=== PATIENT | male | born 1990 ===

== ENCOUNTER 2021-04-23 19:25 | Emergency (ER) | payer MEDICAID ==
[~2021-04-23] VITALS: Ht 175.3 cm; Wt 97.2 kg
[2021-04-23] MEDS ORDERED: LORAZEPAM 1MG TABLET PO ONE (23:30)
[2021-04-24 00:02] LABS: BASOPHILS % 0.6 % (0.0-2.0); EOSINOPHILS % 1.8 % (0.0-5.0); HEMATOCRIT. 43.6 % (42.0-52.0); HEMOGLOBIN. 14.7 g/dL (14.0-18.0); LYMPHOCYTES % 17.9 % (20.0-50.0); MEAN CORPUSCULAR HEMOGLOBIN 29.9 pg (28.0-32.0); MEAN CORPUSCULAR VOLUME 88.4 fL (80.0-94.0); MEAN PLATELET VOLUME 8.1 fl (7.4-10.4); MONOCYTES % 11.3 % (2.0-8.0); NEUTROPHILS % 68.4 % (40.0-76.0); PLATELET 348 x1000/uL (130-400); RED BLOOD CELL COUNT 4.93 mill/uL (4.7-6.1); RED CELL DISTRIBUTION WIDTH 13.9 % (11.6-14.6)
[2021-04-24 00:10] LABS: CHLORIDE 99 mEq/L (98-107)
[2021-04-24 00:16] LABS: ETHANOL BLOOD < 10 mg/dL
[2021-04-24 00:21] LABS: CREATINE KINASE 853 IU/L (39-308)
[2021-04-24 00:27] LABS: CLARITY URINE CLEAR (CLEAR); COLOR URINE DARK YELLOW (YELLOW); KETONES URINE TRACE (NEGATIVE); LEUKOCYTE ESTERASE URINE NEGATIVE (NEGATIVE); NITRITE URINE NEGATIVE (NEGATIVE); OCCULT BLOOD URINE NEGATIVE (NEGATIVE); PROTEIN URINE NEGATIVE (NEGATIVE); SPECIFIC GRAVITY URINE 1.026 (1.005-1.030)
[2021-04-24 00:54] LABS: *AMPHETAMINES SCREEN URINE PRESUMTIVE POSITIVE (NEGATIVE); *BARBITURATES SCREEN URINE NEGATIVE (NEGATIVE); *BENZODIAZEPINES SCREEN URINE PRESUMTIVE POSITIVE (NEGATIVE); *COCAINE SCREEN URINE NEGATIVE (NEGATIVE)
[2021-04-24 00:55] LABS: CANNABINOID URINE SCREEN PRESUMTIVE POSITIVE (NEGATIVE); METHADONE URINE SCREEN NEGATIVE (NEGATIVE); OPIATES URINE SCREEN NEGATIVE (NEGATIVE); PHENCYCLIDINE URINE SCREEN NEGATIVE (NEGATIVE)
[2021-04-24] MEDS ORDERED: METHOCARBAMOL 500MG TABLET PO ONE (02:45)
[2021-04-24] MEDS ORDERED: IBUPROFEN 600MG TABLET PO ONE (02:45)
[2021-04-24] MEDS ORDERED: LORAZEPAM 1MG TABLET PO ONE (16:30)
[2021-04-24] MEDS: ZIPRASIDONE HCL 40MG CAPSULE PO SCH (17:05)
[2021-04-25] MEDS ORDERED: LORAZEPAM 2MG/ML CPJ IM STA (05:40)
[2021-04-25] MEDS ORDERED: OLANZAPINE 10 MG/VIAL IM ONE (05:45)
[2021-04-25] MEDS: ZIPRASIDONE HCL 40MG CAPSULE PO SCH ×2 (10:42→17:00)
[2021-04-25 19:25] VITALS: BP 127/93
== END 2021-04-25 20:00 ==
LOC: ER 19:25
DX: R45.850 Homicidal ideations (principal); T43.642A Poisoning by ecstasy, intentional self-harm, initial encounter; Z20.822 Contact with and (suspected) exposure to COVID-19; F25.0 Schizoaffective disorder, bipolar type; R07.89 Other chest pain; R94.31 Abnormal electrocardiogram [ECG] [EKG]; Y92.89 Other specified places as the place of occurrence of the external cause
CPT/HCPCS: 36415; 80053; 80305; 80307; 80320; 80329; 81003; 82550; 85025; 87426; 93005; 99285; C9803; J2060; J3490; U0003; U0005; G0480